=== PATIENT | male | born 1945 | race Caucasian/White ===

== ENCOUNTER → 2020-09-25 19:32 | Outpatient (ROUT) | payer MEDICARE, OTHER, SELFPAY | PROVIDERS: Visit Provider Dermatology | DX: L08.9 Local infection of the skin and subcutaneous tissue, unspecified (principal) | CPT/HCPCS: 87070; 87077; 87205 ==

== ENCOUNTER → 2020-10-03 11:41 | Outpatient (CLI) | payer MEDICARE, OTHER, SELFPAY | PROVIDERS: Referring Provider Dermatology; Visit Provider Family Medicine | DX: E11.628 Type 2 diabetes mellitus with other skin complications (principal); S01.00XA Unspecified open wound of scalp, initial encounter | CPT/HCPCS: 11042; 99204; 99213 ==

== ENCOUNTER → 2020-10-10 12:11 | Outpatient (CLI) | payer MEDICARE, OTHER, SELFPAY | PROVIDERS: Referring Provider Dermatology; Visit Provider Family Medicine | DX: E11.628 Type 2 diabetes mellitus with other skin complications (principal); S01.00XA Unspecified open wound of scalp, initial encounter | CPT/HCPCS: 11042 ==

== ENCOUNTER → 2020-10-17 11:31 | Outpatient (CLI) | payer MEDICARE, OTHER, SELFPAY | PROVIDERS: Referring Provider Dermatology; Visit Provider Family Medicine | DX: S01.80XA Unspecified open wound of other part of head, initial encounter (principal) | CPT/HCPCS: 99213 ==

== ENCOUNTER → 2020-10-24 10:33 | Outpatient (CLI) | payer MEDICARE, OTHER, SELFPAY | PROVIDERS: PCP Student in an Organized Health Care Education/Training Program; Referring Provider Student in an Organized Health Care Education/Training Program; Visit Provider Family Medicine | DX: S01.00XA Unspecified open wound of scalp, initial encounter (principal); E11.628 Type 2 diabetes mellitus with other skin complications | CPT/HCPCS: 99213 ==

== ENCOUNTER → 2020-10-31 11:36 | Outpatient (CLI) | payer MEDICARE, OTHER, SELFPAY | PROVIDERS: PCP Student in an Organized Health Care Education/Training Program; Referring Provider Student in an Organized Health Care Education/Training Program; Visit Provider Family Medicine | DX: E11.628 Type 2 diabetes mellitus with other skin complications (principal); S01.00XA Unspecified open wound of scalp, initial encounter | CPT/HCPCS: 99213 ==

== ENCOUNTER → 2020-11-06 11:11 | Outpatient (CLI) | payer MEDICARE, OTHER, SELFPAY | PROVIDERS: PCP Student in an Organized Health Care Education/Training Program; Referring Provider Student in an Organized Health Care Education/Training Program; Visit Provider Family Medicine | DX: S01.00XA Unspecified open wound of scalp, initial encounter (principal); E10.628 Type 1 diabetes mellitus with other skin complications | CPT/HCPCS: 97597 ==

== ENCOUNTER → 2020-11-14 11:40 | Outpatient (CLI) | payer MEDICARE, OTHER, SELFPAY | PROVIDERS: PCP Student in an Organized Health Care Education/Training Program; Referring Provider Student in an Organized Health Care Education/Training Program; Visit Provider Family Medicine | DX: E11.628 Type 2 diabetes mellitus with other skin complications (principal); S01.00XA Unspecified open wound of scalp, initial encounter; T81.89XA Other complications of procedures, not elsewhere classified, initial encounter; L08.9 Local infection of the skin and subcutaneous tissue, unspecified; Z48.01 Encounter for change or removal of surgical wound dressing | CPT/HCPCS: 99213 ==

== ENCOUNTER → 2020-11-26 09:49 | Outpatient (CLI) | payer MEDICARE, OTHER, SELFPAY | PROVIDERS: PCP Student in an Organized Health Care Education/Training Program; Referring Provider Student in an Organized Health Care Education/Training Program; Visit Provider Family Medicine | DX: E11.628 Type 2 diabetes mellitus with other skin complications (principal); S01.00XA Unspecified open wound of scalp, initial encounter | CPT/HCPCS: 97597 ==

== ENCOUNTER → 2020-12-05 10:33 | Outpatient (CLI) | payer MEDICARE, OTHER, SELFPAY | PROVIDERS: PCP Student in an Organized Health Care Education/Training Program; Referring Provider Dermatology; Visit Provider Family Medicine | DX: E11.628 Type 2 diabetes mellitus with other skin complications (principal); S01.00XD Unspecified open wound of scalp, subsequent encounter; E11.40 Type 2 diabetes mellitus with diabetic neuropathy, unspecified | CPT/HCPCS: 99212; 99213 ==

== ENCOUNTER → 2021-02-19 13:22 | Outpatient (CLI) | payer MEDICARE, OTHER, SELFPAY | PROVIDERS: PCP Student in an Organized Health Care Education/Training Program; Referring Provider Student in an Organized Health Care Education/Training Program; Visit Provider Family Medicine | DX: E11.628 Type 2 diabetes mellitus with other skin complications (principal); S01.00XA Unspecified open wound of scalp, initial encounter; E11.40 Type 2 diabetes mellitus with diabetic neuropathy, unspecified | CPT/HCPCS: 11042; 99213; 99214 ==

== ENCOUNTER → 2021-03-05 14:09 | Outpatient (CLI) | payer MEDICARE, OTHER, SELFPAY | PROVIDERS: PCP Student in an Organized Health Care Education/Training Program; Referring Provider Student in an Organized Health Care Education/Training Program; Visit Provider Family Medicine | DX: E11.628 Type 2 diabetes mellitus with other skin complications (principal); S01.00XA Unspecified open wound of scalp, initial encounter | CPT/HCPCS: 97597 ==

== ENCOUNTER → 2021-03-13 10:19 | Outpatient (CLI) | payer MEDICARE, OTHER, SELFPAY | PROVIDERS: PCP Student in an Organized Health Care Education/Training Program; Referring Provider Student in an Organized Health Care Education/Training Program; Visit Provider Family Medicine | DX: E11.628 Type 2 diabetes mellitus with other skin complications (principal); S01.00XA Unspecified open wound of scalp, initial encounter | CPT/HCPCS: 99212; 99213 ==

== ENCOUNTER → 2023-10-25 11:18 | Outpatient (CLI) | payer MEDICARE, OTHER, SELFPAY ==
--- NOTE | 2023-10-25 11:20 | DI.RAD.S_ITS ---
PROCEDURE: FL BARIUM SWALLOW W SPEECH INDICATIONS: Dysphagia, unspecified COMPARISON: TECHNIQUE: Examination was conducted in conjunction with speech pathology per standard protocol. In the lateral projection, filming was performed of the patient swallowing. AP projection filming may also be performed with patient swallowing. COMPARISON: [facility], RG, CT THORAX W/O CONTRAST, 01/20/2022, 11:19. FINDINGS: Function: Abnormal spillage of contrast without swelling. Aspiration with thin liquid barium. Morphology: No cricopharyngeal bar is identified. No cervical esophageal webs. No Zenker's diverticulum. No strictures. IMPRESSION: Aspiration with thin liquid barium. Dictated by: Pierre Garvey M.D. on 10/25/2023 at 13:25 Approved by: Pierre Garvey M.D. on 10/25/2023 at 14:07
--- NOTE | 2023-10-25 16:59 | ST.SWALLOW ---
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 Pt accompanied him to the evaluation and provided most case history. Pt reports he has started to notice memory issues that have progressively gotten worse. Pt reports coughing/throat clearing when eating has been going on for about a year and has gotten progressively worse. He has trouble swallowing sharp edge foods, such as crackers, rice. He has not noticed any coughing when drinking liquids , only solids. Pt reports he has difficulties swallowing meat, however dips it in applesauce which helps. Pt reports he has not had a dx of PNA this past year. 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 He had a previous EGD completed in 2018 by GI, which found a normal esophagus and stomach. He has a hx of GERD and takes pantoprazole, however his reports they have not been educated on reflux precautions/diet. Pt with PMHx significant for Type 2 diabetes, interstitial pulmonary disease. He also reports throat irritation, which triggers him to clear his throat often. Pt reports coughing/throat clearing occurs when he isn't eating, however worsens with food, especially during dinner Pt reports sometimes he won't finish his dinner because he is coughing so much . [ End ] Subjective Observations Pt was accompanied by his who provided background information. Pt was seated in the fluoroscopy chair with directions and instructions provided for him. He indicated he understood and agreed to proceed. Patient Positioning Position View Lat-A/P Imaging Lateral View Textures Administered Trials Presented Thin Liquid via Spoon (IDDSI 0 ),Thin Liquid via Cup (IDDSI 0 ),Mildly Thick Liquid via Spoon (IDDSI 2),Mildly Thick Liquid via Cup (IDDSI 2), Extremely Thick Liquid via Spoon (IDDSI 4),Regular (IDDSI 7) Barium Tablet Yes The IDDSI Framework Protocol: IDDSI.1 Oral Impairment Source: The Modified Barium Swallow Impairment Profile (MBSImP??) Lip Closure Escape beyond mid-chin Tongue Control During Bolus Hold Posterior escape of greater than half of bolus Bolus Preparation/Mastication Slow prolonged chewing/mashing with complete re-collection Bolus Transport/Lingual Motion Delayed initiation of tongue motion Initiation of Pharyngeal Swallow Bolus head at pyriforms Additional Oral Impairment Observations OME and DKS were observed to be WNL. Mastication demonstrated rotary chew with good bolus formation, control and AP transition. Pharyngeal Impairment Source: The Modified Barium Swallow Impairment Profile (MBSImP??) Soft Palate Elevation No bolus between soft palate & pharyngeal wall Laryngeal Elevation Part.sup.move.thyroid cart/ part.approx.arytenoids to epiglot.petiole Anterior Hyoid Excursion Partial anterior movement Epiglottic Movement No inversion Laryngeal Vestibular Closure Incomplete; narrow column air/ contrast in laryngeal vestibule Pharyngeal Stripping Wave Present - diminished Pharyngoesophageal Segment Opening Partial distention/partial duration; partial obstruction of flow Tongue Base Retraction Wide column of contrast/air betwn tongue base & post. pharyngeal wall Pharyngeal Residue Collection of residue within/ on pharyngeal structures Location Diffuse (>3 areas) Additional Pharyngeal Impairment Moderate to severe pharyngeal Observations dysphagia was observed. Overall pharyngeal weakness of the structures was noted with no epiglottic inversion observed across trials. Inconsistent partial inversion to horizontal epiglottic position was noted. However, liquid trials continued to penetrate the airway. Penetration/aspiration of secretions were silent with throat clearing observed but not effective in clearing laryngeal vestibule. Reflexive cough was triggered by hugh aspiration but did not clear trachea. Both liquid and solid trials were observed to result in aspiration of secretions. With the cookie trial, the bolus was noted to flow on the aerepiglottic folds across open airway before swallow was initiated. Solid residual within the valeculla required 2-3 subsequent dry swallows to clear the bolus. A/P View Textures Administered Trials Presented Thin Liquid via Spoon (IDDSI 0 ),Thin Liquid via Cup (IDDSI 0 ) The IDDSI Framework Protocol: IDDSI.1 A/P View Observations Pharyngeal Contraction Complete Esophageal Clearance Upright Position Complete clearance; esophageal coating Esophageal Function WFL Additional A-P Observations Esophageal phase of swallowing observed to be WFL. Trials clear esophagus within a timely manner. Clinical Impressions Dysphagia Type Pharyngeal Findings Moderate to severe pharyngeal dysphagia was observed. Overall pharyngeal weakness of the structures was noted with no epiglottic inversion observed across trials. Inconsistent partial inversion to horizontal epiglottic position was noted. However, liquid trials continued to penetrate the airway. Penetration/aspiration of secretions were silent with throat clearing observed but not effective in clearing laryngeal vestibule. Reflexive cough was triggered by hugh aspiration but did to clear trachea. Both liquid and solid trials were observed to result in aspiration of secretions. With the cookie trial, the bolus was noted to flow on the aerepiglottic folds across open airway before swallow was initiated. Residual within the valeculla required 2-3 subsequent dry swallows to clear the bolus. Chin tuck strategy was effective in reduction of overt aspiration. Mcbride thick liquids appeared to limit aspiration risk. Risk of aspiration was significantly reduced with nectar thick liquids and a chin tuck. Thin liquids do not appear to be safe for the pt to consume. The results were described and discussed with the pt and his who indicated they understood Rehabilitation Potential Good Patient Appropriate for Therapy Yes Recommendations Diet Liquids Order Mildly Thick (IDDSI 2) Diet Order Easy to Chew (IDDSI 7) Medication Recommendation As Tolerated,Whole in Carrier, Crushed in Carrier Comments small spoonsful recommended Additional Dietary Needs Reminders to Use Strategies Aspiration Precautions Recommended Precautions Upright at 90 Degrees, Alternate Liquids/Solids,Small Bites/Sips,Chin Tuck Additional Precautions Safe Swallow Strategy education recommended Treatment Plan Therapy Recommendations Outpatient Speech Therapy,Base of Tongue Exercises
== END ==
LOC: RAD 11:19
PROVIDERS: Family Provider Student in an Organized Health Care Education/Training Program; PCP Student in an Organized Health Care Education/Training Program; Referring Provider Family Medicine; Visit Provider Family Medicine
DX: R13.10 Dysphagia, unspecified (principal)
CPT/HCPCS: 74230